=== PATIENT | female | born 1950 | race Caucasian/White ===

== ENCOUNTER → 2016-09-15 | Outpatient (CLI) | payer MEDICARE | END | disposition home or self-care (01) | LOC: LAB 09-14 09:04 | PROVIDERS: ATTEND Nurse Practitioner Family | DX: I10 Essential (primary) hypertension (principal) ==

== ENCOUNTER 2019-02-23 23:43 | Emergency (ER) | payer MEDICARE, OTHER ==
[2019-02-24] MEDS ORDERED: SODIUM CHLORIDE 0.9% 1000ML 1,000 ML IVS PRN (00:15)
[2019-02-24] MEDS ORDERED: SODIUM CHLORIDE 0.9% (FLUSH) 10 ML SYG IV PRN (00:15)
--- NOTE | 2019-02-24 01:00 | RAD ---
EXAM: XR Chest, 1 View CLINICAL HISTORY: The patient is 68 years old and is Female; syncope TECHNIQUE: Frontal view of the chest. COMPARISON: Chest radiograph December 12, 2015. FINDINGS: LUNGS: Unremarkable. No consolidation. PLEURAL SPACE: Unremarkable. No pneumothorax. HEART: Unremarkable. No cardiomegaly. MEDIASTINUM: Unremarkable. BONES/JOINTS: Scoliotic curvature of the spine is present. IMPRESSION: No acute cardiopulmonary process. Electronically signed by: Layla Roman MD 02/24/2019 12:58 AM RUST
[2019-02-24] MEDS ORDERED: LIDOCAINE 1% W/ EPINEPHRINE 20 ML VIAL INJ ONE (01:42)
--- NOTE | 2019-02-24 01:43 | CT ---
EXAM: CT Abdomen and Pelvis With Intravenous Contrast CLINICAL HISTORY: The patient is 68 years old and is Female; syncope with c/o head/neck/back pain TECHNIQUE: Axial computed tomography images of the abdomen and pelvis with intravenous contrast. Sagittal and coronal reformatted images were created and reviewed. This CT exam was performed using one or more of the following dose reduction techniques: automated exposure control, adjustment of the mA and/or kV according to patient size, and/or use of iterative reconstruction technique. COMPARISON: No relevant prior studies available. FINDINGS: ARTIFACTS: The exam is suboptimal secondary to motion artifact. LUNG BASES: Unremarkable. No mass. No consolidation. ABDOMEN: LIVER: Unremarkable. No mass. GALLBLADDER AND BILE DUCTS: Surgical clips are present in the right upper quadrant, consistent with previous cholecystectomy. PANCREAS: No ductal dilation. No mass. SPLEEN: Unremarkable. ADRENALS: Unremarkable. No mass. KIDNEYS AND URETERS: An oblong 6.1 cm right parapelvic renal cyst is present. The kidneys enhance symmetrically. No obstructing renal or ureteral calculus is seen. STOMACH AND BOWEL: The stomach is decompressed. The small bowel is normal in caliber. Stool is present throughout the colon. There is no mucosal thickening or evidence of bowel obstruction. PELVIS: APPENDIX: No findings to suggest acute appendicitis. BLADDER: The bladder is well distended. REPRODUCTIVE: Unremarkable as visualized. ABDOMEN and PELVIS: INTRAPERITONEAL SPACE: Unremarkable. No free air. No significant fluid collection. BONES/JOINTS: A right hip prosthesis is present. The hardware is engaged. Multilevel degenerative change of the spine is present. There is no acute fracture of the visualized axial and appendicular skeleton. SOFT TISSUES: The soft tissues are normal. VASCULATURE: Minimal atherosclerosis of the vasculature is present. No abdominal aortic aneurysm. LYMPH NODES: Unremarkable. No enlarged lymph nodes. IMPRESSION: No evidence of solid organ injury or traumatic bony findings on this contrasted CT of the abdomen and pelvis. Electronically signed by: Layla Roman MD 02/24/2019 1:42 AM PHOTO GRAPHICS LIBRARIAN
--- NOTE | 2019-02-24 01:45 | CT ---
EXAM: CT Chest With Intravenous Contrast CLINICAL HISTORY: The patient is 68 years old and is Female; syncope with c/o chest/head/neck/back pain TECHNIQUE: Axial computed tomography images of the chest with intravenous contrast. Sagittal and coronal reformatted images were created and reviewed. This CT exam was performed using one or more of the following dose reduction techniques: automated exposure control, adjustment of the mA and/or kV according to patient size, and/or use of iterative reconstruction technique. COMPARISON: No relevant prior studies available. FINDINGS: LUNGS: The lungs are clear of focal opacity, mass, or consolidation. PLEURAL SPACE: Unremarkable. No pneumothorax. No significant effusion. HEART: No cardiomegaly. No pericardial effusion. BONES/JOINTS: Mild multilevel degenerative change of the spine is present. There is no acute fracture of the visualized axial and appendicular skeleton. SOFT TISSUES: The soft tissues are normal. VASCULATURE: Unremarkable. No thoracic aortic aneurysm. LYMPH NODES: Unremarkable. No enlarged lymph nodes. IMPRESSION: No evidence of solid organ injury or traumatic bony findings on this contrasted CT of the chest. Electronically signed by: Layla Roman MD 02/24/2019 1:44 AM POPCORN ATTENDANT
--- NOTE | 2019-02-24 01:48 | CT ---
EXAM: CT Head Without Intravenous Contrast CLINICAL HISTORY: The patient is 68 years old and is Female; syncope with c/o head/neck/back pain TECHNIQUE: Axial computed tomography images of the head/brain without intravenous contrast. Sagittal and coronal reformatted images were created and reviewed. This CT exam was performed using one or more of the following dose reduction techniques: automated exposure control, adjustment of the mA and/or kV according to patient size, and/or use of iterative reconstruction technique. COMPARISON: No relevant prior studies available. FINDINGS: BRAIN: Unremarkable. The bueno-white matter differentiation is preserved . No hemorrhage. No significant white matter disease. No edema. No extra-axial fluid collections. VENTRICLES: Unremarkable. No ventriculomegaly. BONES/JOINTS: No acute fracture. SOFT TISSUES: Unremarkable. SINUSES: Unremarkable as visualized. No acute sinusitis. MASTOID AIR CELLS: Unremarkable as visualized. No mastoid effusion. ORBITS: Unremarkable as visualized. IMPRESSION: No acute intracranial findings. Electronically signed by: Layla Roman MD 02/24/2019 1:47 AM DIRECTOR CLINICAL DATA
--- NOTE | 2019-02-24 01:48 | CT ---
EXAM: CT Cervical Spine Without Intravenous Contrast CLINICAL HISTORY: The patient is 68 years old and is Female; syncope with c/o head/neck/back pain TECHNIQUE: Axial computed tomography images of the cervical spine without intravenous contrast. Sagittal and coronal reformatted images were created and reviewed. This CT exam was performed using one or more of the following dose reduction techniques: automated exposure control, adjustment of the mA and/or kV according to patient size, and/or use of iterative reconstruction technique. COMPARISON: No relevant prior studies available. FINDINGS: VERTEBRAE: The vertebral body heights and alignment are maintained. No acute fracture. DISCS/SPINAL CANAL/NEURAL FORAMINA: Mild intervertebral disc space narrowing with osteophyte formation is present. There is no significant canal narrowing. SOFT TISSUES: The soft tissues are normal. LUNG APICES: The lung apices are clear. IMPRESSION: No fracture or malalignment of the cervical spine. Electronically signed by: Layla Roman MD 02/24/2019 1:46 AM SPECIALIST PHYSICIAN
[2019-02-24] MEDS ORDERED: NEOMYCIN-BACITRACIN-POLYMYXIN 0.9 GM UD TOP ONE (01:52)
[2019-02-24 02:03] VITALS: O2SAT 98
--- NOTE | 2019-02-24 02:07 | ED.PDOC ---
History of Present Illness - General Chief Complaint: Head Injury Stated Complaint: fall, hit back of head Time Seen by Provider: 02/24/19 00:15 Source: patient, RN notes reviewed, Vital Signs reviewed, EMS notes reviewed, family Exam Limitations: no limitations - History of Present Illness Initial Comments: Patient is a 68-year-old white female who was at home, began to feel nauseated and got up to go to the bathroom and then had a syncopal episode in the bathroom. Patient denies any chest pain or palpitations prior to the syncope. Patient became dizzy, had her vision become bueno and then passed out. Patient believes that she was only out for a few seconds. Patient complains of mild headache that is throbbing in nature. Moderate in intensity. Not improved or worsened by anything. Patient is also complaining of right mid back pain over her kidneys. This is stabbing in nature, moderate in intensity and worse with palpation or lying on it. Patient denies any blurry vision or dizziness at this time. Patient denies any chest pain, shortness of breath, nausea, vomiting or diarrhea at this time. Headache has improved markedly. Timing/Duration: 1 hour Severity: moderate Improving Factors: rest Worsening Factors: movement Associated Symptoms: headaches, nausea/vomiting, weakness Allergies/Adverse Reactions: Allergies NO KNOWN ALLERGY Allergy (Verified 12/12/15 12:53) Home Medications: Ambulatory Orders Cyclobenzaprine HCl [Flexeril] 5 mg PO Q6H #15 tab 02/24/19 Tramadol HCl [Ultram] 50 mg PO Q6H #15 tab 02/24/19 Review of Systems - Review of Systems Constitutional: States: see HPI, weakness. Denies: chills, fever, malaise EENTM: States: see HPI. Denies: blurred vision, double vision, throat pain Respiratory: States: no symptoms reported Cardiology: States: see HPI, syncope. Denies: chest pain, palpitations Gastrointestinal/Abdominal: States: see HPI, nausea. Denies: abdominal pain, diarrhea, vomiting Genitourinary: States: no symptoms reported Musculoskeletal: States: see HPI, back pain Skin: States: other - Laceration on posterior occiput. Neurological: States: see HPI, headache, weakness. Denies: paresthesia, seizure, tingling, tremors Endocrine: States: no symptoms reported Hematologic/Lymphatic: States: no symptoms reported All other Systems: Reviewed and Negative Past Medical History (General) - Patient Medical History Hx Seizures: No Hx Stroke: No Hx Dementia: No Hx Asthma: No Hx of COPD: No Hx Cardiac Disorders: No Hx Congestive Heart Failure: No Hx Pacemaker: No Hx Hypertension: Yes Hx Thyroid Disease: No Hx Diabetes: No Hx Gastroesophageal Reflux: No Hx Renal Disease: No Hx Cancer: No Hx of HIV: No Hx Hepatitis C: No Hx MRSA: No Surgical History: appendectomy, cholecystectomy, other - Vaccination History Hx Tetanus, Diphtheria Vaccination: No Hx Influenza Vaccination: No Hx Pneumococcal Vaccination: Yes Immunizations Up to Date: No - Social History Hx Tobacco Use: Yes Hx Chewing Tobacco Use: No Hx Alcohol Use: No Hx Substance Use: No Hx Substance Use Treatment: No Hx Depression: No Feels Threatened In Home Enviroment: No Feels Threatened In a Relationship: No Hx Physical Abuse: No Hx Emotional Abuse: No Hx Suspected Abuse: No - Activities of Daily Living Hospice Agency (if applicable):: None - Female History Patient is a Female of Child Bearing Age (10 -59 yrs old): No Patient : No Family Medical History - Family History Mother Living Status: Hx Family Cancer: Yes Physical Exam - Physical Exam General Appearance: Alert, Anxious, Well Developed, Well Groomed, Well Hydrated, Well Nourished Eye Exam: bilateral normal, bilateral abnormal EOM Ears, Nose, Throat: hearing grossly normal, normal ENT inspection, normal pharynx Neck: non-tender, full range of motion, supple, normal inspection Respiratory: chest non-tender, lungs clear, normal breath sounds, no respiratory distress, no accessory muscle use Cardiovascular/Chest: normal peripheral pulses, regular rate, rhythm, no edema, no gallop, no JVD, no murmur, other - Patient with tenderness to palpation of the right mid back. There is no midline tenderness to palpation. There are no step-offs or crepitus. Peripheral Pulses: radial,right: 2+ - Cap refill less than 2 seconds in her fingers, radial,left: 2+ - Cap refill less than 2 seconds in her fingers Gastrointestinal/Abdominal: normal bowel sounds, non tender, no organomegaly, no pulsatile mass Back Exam: no vertebral tenderness, CVA tenderness (R), muscle spasm Extremity: normal range of motion, non-tender, normal inspection, no pedal edema Neurologic: wood setter II-XII nml as tested, no motor/sensory deficits, alert, normal mood/affect, oriented x 3 Skin Exam: normal color, warm/dry, other - Patient with 1 and half centimeter laceration on the occiput of her head. Lymphatic: no adenopathy Progress - Progress Progress: Differential diagnosis: Acute TN, PE, vasovagal syncope, dehydration among others. 02/24/19 02:13 Patient is markedly improved since her arrival. She has had no further dizziness or associated nausea or vomiting. Her headache has resolved. She still does have back pain, but this has improved. I suspect the patient had dehydration leading to a vasovagal episode as she got up to go use the restroom. She did strike her head but there is no acute bleed or fracture. Labs do show some mild dehydration, but no UTI. Therefore, I believe the patient had dehydration and vasovagal syncope secondary to dehydration. Plan on discharge home with follow-up with PCP. I discussed this plan of care with the patient and her family and they voiced understanding and agreement. Freddy Estrada M.D. #[id number] - Results/Orders Results/Orders: 02/24/19 00:15 IV Care:Saline Lock per Protoc QSHIFT Telemetry .ONCE Sodium Chloride 0.9% (Flush) [Saline Flush Syringe] 10 ml IV PRN PRN Sodium Chloride 0.9% 1000ML [Ns 1000 ml] 1,000 ml IVS .QD EKG Stat 02/24/19 00:16 EKG Assessment ONCE Pulse Oximetry Assessment DAILY 02/24/19 00:17 Hold Metformin x 48Hrs [id number] 02/24/19 02:01 URINALYSIS Stat 02/24/19 09:00 Pulse Ox Daily Laboratory Results - last 24 hr 02/24/19 02/24/19 00:37 00:37 WBC 13.3 H RBC 5.21 Hgb 14.3 Hct 43.7 MCV 84.0 MCH 27.4 MCHC 32.7 L RDW 15.4 H Plt Count 257 MPV 8.1 Absolute Neuts (auto) 9.90 H Absolute Lymphs (auto) 2.20 Absolute Monos (auto) 1.00 H Absolute Eos (auto) 0.20 Absolute Basos (auto) 0.10 Neutrophils % 74.6 Lymphocytes % 16.2 L Monocytes % 7.3 Eosinophils % 1.2 Basophils % 0.7 Sodium 131 L Potassium 3.5 L Chloride 90 L Carbon Dioxide 26 Anion Gap 18.5 H BUN 23 H Creatinine 0.94 BUN/Creatinine Ratio 24.5 H Random Glucose 108 H Serum Osmolality 266.9 L Calcium 9.1 Total Bilirubin 0.7 AST 19 ALT 12 Alkaline Phosphatase 59 Creatine Kinase 28 CK-MB (CK-2) 1.2 CK-MB (CK-2) % Not Reportable Troponin I < 0.02 Serum Total Protein 6.7 Albumin 3.9 Globulin 2.8 Albumin/Globulin Ratio 1.4 CT head: No acute disease. CT C-spine: No acute fractures or disease. CT chest with contrast: No acute fractures or disease. CT abdomen/pelvis with contrast: No acute disease. Chest x-ray: No acute disease. EKG performed on 23 February 2019 at 2357 hrs.: Normal sinus rhythm at 76 bpm, normal axis deviation, cannot rule out anterior infarct, age indeterminate, abnormal EKG. No previous EKG for comparison. - EKG/XRAY/CT CT Ordered: Yes CT Interpretation Call Back: Yes Procedures - Laceration/Wound Repair Lower Head Wound Length (cm): 1.5 Wound's Depth, Shape: into muscle, linear Wound Explored: clean Irrigated w/ Saline (cc's): 100 Betadine Prep?: No Anesthesia: Lidocaine w/ Epi Volume Anesthetic (cc's): 4 Wound Debrided: No wound debridement Wound Repaired With: [email or web address] Number of Sutures: 4 Layer Closure?: No Sterile Dressing Applied?: Yes Splint Applied?: No Sling Applied?: No Departure - Departure Clinical Impression: Dehydration, Vasovagal syncope Laceration of head Qualifiers: Encounter type: initial encounter Location of open wound of head: scalp Foreign body presence: without foreign body Qualified Code(s): S01.01XA - Laceration without foreign body of scalp, initial encounter Time of Disposition: 02:19 Disposition: Discharge to Home or Self Care Condition: Good Departure Forms: ED Discharge - Pt. Copy, Patient Portal Self Enrollment Instructions: DI for Closed Head Injury, DI for Concussion, Dehydration, Adult (DC), Vasovagal Response (DC) Activity: increase activity as tolerated, walking as tolerated Referrals: [facility] [Primary Care Provider] - 1-2 Days Prescriptions: Cyclobenzaprine HCl [Flexeril] 5 mg PO Q6H #15 tab Tramadol HCl [Ultram] 50 mg PO Q6H #15 tab Home Medications: Ambulatory Orders Cyclobenzaprine HCl [Flexeril] 5 mg PO Q6H #15 tab 02/24/19 Tramadol HCl [Ultram] 50 mg PO Q6H #15 tab 02/24/19
[2019-02-24 02:10] VITALS: TEMP 97.4
[2019-02-24] MEDS ORDERED: TETANUS,DIPHTHERIA,PERTUSSIS 1 EA SYG IM ONE (02:30)
[2019-02-24 02:45] VITALS: BP 100/68
== END 2019-02-24 02:46 | disposition home or self-care (01) ==
LOC: ER 23:43
DX: S01.01XA Laceration without foreign body of scalp, initial encounter (principal); R55 Syncope and collapse; E86.0 Dehydration; M54.6 Pain in thoracic spine; R11.0 Nausea; I10 Essential (primary) hypertension; Z87.891 Personal history of nicotine dependence; W18.30XA Fall on same level, unspecified, initial encounter; Z79.899 Other long term (current) drug therapy; Y92.002 Bathroom of unspecified non-institutional (private) residence as the place of occurrence of the external cause
CPT/HCPCS: 36415; 70450; 71045; 71260; 72125; 74177; 80053; 81001; 82550; 82553; 84484; 85025; 90471; 90715; 93005; J7030

== ENCOUNTER 2020-01-16 07:58 | Emergency (ER) | payer MEDICARE, OTHER ==
[2020-01-16] MEDS ORDERED: ASPIRIN TABLET 325 MG TAB ONE (08:07)
[2020-01-16] MEDS ORDERED: SODIUM CHLORIDE 0.9% (FLUSH) 10 ML SYG IV PRN (08:14)
--- NOTE | 2020-01-16 08:17 | ED.PDOC ---
History of Present Illness - General Chief Complaint: Chest Pain/AL Stated Complaint: chest pain Time Seen by Provider: 01/16/20 08:03 Source: patient, RN notes reviewed, Vital Signs reviewed Exam Limitations: no limitations - History of Present Illness Initial Comments: 69 yo F with PMH HTN and Tobacco use comes in with 2 hours of chest pain. Started substernal radiates to back. Burning in nature. No prior CAD. no family hx of CAD. Has not had previous episodes. states she woke up coughing. no shortness of breath, n/v/d. no fever. thinks she had covid one year ago, and really has not felt well since. no body aches or change in taste or smell. Does have hx of DVT with prior hip surgery 9 years ago, not currently on blood pressure medications. States she had bad LOYD when she woke up but never any diaphoresis. no current arm pain or pain radiation to jaw. Did have arm soreness while she was making coffee this morning. Allergies/Adverse Reactions: Allergies NO KNOWN ALLERGY Allergy (Verified 12/12/15 12:53) Home Medications: Ambulatory Orders Cyclobenzaprine HCl [Flexeril] 5 mg PO Q6H #15 tab 02/24/19 Tramadol HCl [Ultram] 50 mg PO Q6H #15 tab 02/24/19 Review of Systems - Review of Systems Constitutional: Denies: chills, fever EENTM: Denies: blurred vision, ear discharge, throat pain, mouth pain Respiratory: States: cough. Denies: short of breath, wheezing Cardiology: States: chest pain. Denies: palpitations, syncope Gastrointestinal/Abdominal: Denies: abdominal pain, diarrhea, nausea, vomiting Genitourinary: Denies: discharge, dysuria, frequency Musculoskeletal: States: back pain. Denies: joint swelling Skin: Denies: lumps Neurological: Denies: depressed, numbness, paresthesia, seizure Endocrine: Denies: unexplained weight gain, unexplained weight loss Hematologic/Lymphatic: States: blood clots - DVT 10 years ago after hip surgery. Denies: easy bleeding, easy bruising Past Medical History (General) - Patient Medical History Hx Seizures: No Hx Stroke: No Hx Dementia: No Hx Asthma: No Hx of COPD: No Hx Cardiac Disorders: No Hx Congestive Heart Failure: No Hx Pacemaker: No Hx Hypertension: Yes Hx Thyroid Disease: No Hx Diabetes: No Hx Gastroesophageal Reflux: No Hx Renal Disease: No Hx Cancer: No Hx of HIV: No Hx Hepatitis C: No Hx MRSA: No - Vaccination History Hx Tetanus, Diphtheria Vaccination: No Hx Influenza Vaccination: No Hx Pneumococcal Vaccination: Yes - Social History Hx Tobacco Use: Yes Hx Chewing Tobacco Use: No Hx Alcohol Use: No Hx Substance Use: No Hx Substance Use Treatment: No Hx Depression: No Hx Physical Abuse: No Hx Emotional Abuse: No Hx Suspected Abuse: No - Female History Patient : No Family Medical History - Family History Mother Living Status: Hx Family Cancer: Yes Physical Exam - Physical Exam General Appearance: Alert, Comfortable, No apparent distress, Well Developed, Well Groomed, Well Hydrated, Well Nourished Eyes, Ears, Nose, Throat Exam: PERRL/EOMI, normal ENT inspection, TMs normal Neck: non-tender, full range of motion, supple, normal inspection Respiratory: chest non-tender, lungs clear, normal breath sounds, no respiratory distress, no accessory muscle use Cardiovascular/Chest: normal peripheral pulses, regular rate, rhythm, no edema, no gallop, no JVD, no murmur Peripheral Pulses: radial,right: 2+, radial,left: 2+ Gastrointestinal/Abdominal: normal bowel sounds, non tender, soft Rectal Exam: deferred Extremity: normal inspection, no pedal edema, no calf tenderness, normal capillary refill 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 Recommend transfer for further evaluation, as we currently have no beds available. Patient refused transfer at this time. Will obs, repeat troponin. second troponin elevated, agrees to transfer. 01/16/20 08:14 Sodium Chloride 0.9% (Flush) [Saline Flush Syringe] 10 ml IV PRN PRN EKG Stat Pulse Ox Stat 01/16/20 08:15 EKG Assessment ONCE EKG STAT Pulse Oximetry Assessment DAILY 01/16/20 09:38 CTA Chest [CT] Stat Sodium Chloride 0.9% 1000ML [Ns 1000 ml] 1,000 ml IVS ONCE 01/16/20 10:40 TROPONIN-I Stat Laboratory Results WBC 5.8 K/mm3 (4.8-10.8) 01/16/20 08:35 RBC 4.62 M/mm3 (4.20-5.40) 01/16/20 08:35 Hgb 13.4 gm/dL (12.0-16.0) 01/16/20 08:35 Hct 39.4 % (36.0-47.0) 01/16/20 08:35 MCV 85.2 fl (81.0-99.0) 01/16/20 08:35 MCH 29.0 pg (27.0-31.0) 01/16/20 08:35 MCHC 34.1 g/dL (33.0-37.0) 01/16/20 08:35 RDW 15.2 % (11.5-14.5) H 01/16/20 08:35 Plt Count 210 K/mm3 (130-400) 01/16/20 08:35 MPV 8.8 fl (7.40-10.4) 01/16/20 08:35 Absolute Neuts (auto) 3.20 K/uL (1.8-6.8) 01/16/20 08:35 Absolute Lymphs (auto) 1.70 K/uL (1.0-3.4) 01/16/20 08:35 Absolute Monos (auto) 0.50 K/uL (0.2-0.8) 01/16/20 08:35 Absolute Eos (auto) 0.30 K/uL (0.0-0.4) 01/16/20 08:35 Absolute Basos (auto) 0.10 K/uL (0.0-0.1) 01/16/20 08:35 Neutrophils % 56.1 % (42.0-78.0) 01/16/20 08:35 Lymphocytes % 30.0 % (20.0-50.0) 01/16/20 08:35 Monocytes % 8.4 % (2.0-9.0) 01/16/20 08:35 Eosinophils % 4.3 % (1.0-5.0) 01/16/20 08:35 Basophils % 1.2 % (0.0-2.0) 01/16/20 08:35 PT 9.9 SECONDS (9.0-10.9) 01/16/20 08:35 INR 1.00 (0.9-1.15) 01/16/20 08:35 PTT (SP) 24.1 SECONDS (21.8-31.6) 01/16/20 08:35 D-Dimer, Quantitative 689.0 ng/ml (131-400) H* 01/16/20 08:45 Sodium 142 mmol/L (135-145) 01/16/20 08:35 Potassium 3.9 mmol/L (3.6-5.0) 01/16/20 08:35 Chloride 104 mmol/L (101-111) 01/16/20 08:35 Carbon Dioxide 26 mmol/L (21-31) 01/16/20 08:35 Anion Gap 15.9 (12-18) 01/16/20 08:35 BUN 12 mg/dL (7-18) 01/16/20 08:35 Creatinine 0.84 mg/dL (0.6-1.3) 01/16/20 08:35 BUN/Creatinine Ratio 14.3 (10-20) 01/16/20 08:35 Random Glucose 104 mg/dL (70-105) 01/16/20 08:35 Serum Osmolality 283.2 mOsm/L (275-295) 01/16/20 08:35 Calcium 9.1 mg/dL (8.4-10.2) 01/16/20 08:35 Magnesium 2.2 mg/dL (1.8-2.5) 01/16/20 08:35 Creatine Kinase 48 IU/L (26-140) 01/16/20 08:35 CK-MB (CK-2) 1.5 ng/mL (0.0-4.4) 01/16/20 08:35 CK-MB (CK-2) % Not Reportable 01/16/20 08:35 Troponin I < 0.02 ng/mL (0.01-0.05) 01/16/20 08:35 B-Natriuretic Peptide 39.9 pg/ml (0-100) 01/16/20 08:35 01/16/20 09:48 01/16/20 10:19 01/16/20 11:19 - Results/Orders Results/Orders: delay in dispo, finding placement. 01/16/20 08:14 Sodium Chloride 0.9% (Flush) [Saline Flush Syringe] 10 ml IV PRN PRN EKG Stat Pulse Ox Stat 01/16/20 08:15 EKG STAT 01/16/20 11:30 Heparin Premix [Heparin/D5w 25,000U/500ML] 25,000 units Premix Bag 1 bag IVS PRN EKG STAT Laboratory Results WBC 5.8 K/mm3 (4.8-10.8) 01/16/20 08:35 RBC 4.62 M/mm3 (4.20-5.40) 01/16/20 08:35 Hgb 13.4 gm/dL (12.0-16.0) 01/16/20 08:35 Hct 39.4 % (36.0-47.0) 01/16/20 08:35 MCV 85.2 fl (81.0-99.0) 01/16/20 08:35 MCH 29.0 pg (27.0-31.0) 01/16/20 08:35 MCHC 34.1 g/dL (33.0-37.0) 01/16/20 08:35 RDW 15.2 % (11.5-14.5) H 01/16/20 08:35 Plt Count 210 K/mm3 (130-400) 01/16/20 08:35 MPV 8.8 fl (7.40-10.4) 01/16/20 08:35 Absolute Neuts (auto) 3.20 K/uL (1.8-6.8) 01/16/20 08:35 Absolute Lymphs (auto) 1.70 K/uL (1.0-3.4) 01/16/20 08:35 Absolute Monos (auto) 0.50 K/uL (0.2-0.8) 01/16/20 08:35 Absolute Eos (auto) 0.30 K/uL (0.0-0.4) 01/16/20 08:35 Absolute Basos (auto) 0.10 K/uL (0.0-0.1) 01/16/20 08:35 Neutrophils % 56.1 % (42.0-78.0) 01/16/20 08:35 Lymphocytes % 30.0 % (20.0-50.0) 01/16/20 08:35 Monocytes % 8.4 % (2.0-9.0) 01/16/20 08:35 Eosinophils % 4.3 % (1.0-5.0) 01/16/20 08:35 Basophils % 1.2 % (0.0-2.0) 01/16/20 08:35 PT 9.9 SECONDS (9.0-10.9) 01/16/20 08:35 INR 1.00 (0.9-1.15) 01/16/20 08:35 PTT (SP) 24.1 SECONDS (21.8-31.6) 01/16/20 08:35 D-Dimer, Quantitative 689.0 ng/ml (131-400) H* 01/16/20 08:45 Sodium 142 mmol/L (135-145) 01/16/20 08:35 Potassium 3.9 mmol/L (3.6-5.0) 01/16/20 08:35 Chloride 104 mmol/L (101-111) 01/16/20 08:35 Carbon Dioxide 26 mmol/L (21-31) 01/16/20 08:35 Anion Gap 15.9 (12-18) 01/16/20 08:35 BUN 12 mg/dL (7-18) 01/16/20 08:35 Creatinine 0.84 mg/dL (0.6-1.3) 01/16/20 08:35 BUN/Creatinine Ratio 14.3 (10-20) 01/16/20 08:35 Random Glucose 104 mg/dL (70-105) 01/16/20 08:35 Serum Osmolality 283.2 mOsm/L (275-295) 01/16/20 08:35 Calcium 9.1 mg/dL (8.4-10.2) 01/16/20 08:35 Magnesium 2.2 mg/dL (1.8-2.5) 01/16/20 08:35 Creatine Kinase 48 IU/L (26-140) 01/16/20 08:35 CK-MB (CK-2) 1.5 ng/mL (0.0-4.4) 01/16/20 08:35 CK-MB (CK-2) % Not Reportable 01/16/20 08:35 Troponin I 0.09 ng/mL (0.01-0.05) H* 01/16/20 10:45 B-Natriuretic Peptide 39.9 pg/ml (0-100) 01/16/20 08:35 The data reviewed when caring for this patient included: nurse notes, prior records, etc. The history and assessments from nurses notes were reviewed and considered, and the patient's home medication list was also reviewed and considered. My assessment and the results of testing completed here in the ED were discussed with the patient/family. All questions were answered, and they express understanding of my assessment and the plan. patient was transferred to [facility] in stable condition. Vika Byrnes DO #801 - EKG/XRAY/CT EKG: Sinus, Unchanged from 02/2019 Comments: NSR, normal intervals, poor r wave progession, seen on prior ekg XRAY: chest - no acute cardiopulmonary pathology. CT: CTA chest, no PE Departure - Departure Clinical Impression: NSTEMI (non-ST elevated myocardial infarction) Chest pain Qualifiers: Chest pain type: unspecified Qualified Code(s): R07.9 - Chest pain, unspecified Time of Disposition: 13:41 Disposition: Transfer to Hospital Condition: Fair Departure Forms: ED Discharge - Pt. Copy, Patient Portal Self Enrollment Instructions: DI for Chest Pain, Quitting Smoking for Older Adults, Chest Pain (DC), Quitting Smoking Referrals: VERNON MAST IV, MACHINE REBUILDER [Primary Care Provider] - 1-2 Days Home Medications: Ambulatory Orders Cyclobenzaprine HCl [Flexeril] 5 mg PO Q6H #15 tab 02/24/19 Tramadol HCl [Ultram] 50 mg PO Q6H #15 tab 02/24/19 Transfer to Outside Facility - Transfer Information Decision to Transfer Date: 01/16/20 Decision to Transfer Time: 10:50 Reason for Transfer: specialized care not available - [facility]
[2020-01-16] MEDS ORDERED: NITROGLYCERIN 0.4 MG 25 EA TAB SL ONE ×4 (08:29→09:08)
--- NOTE | 2020-01-16 08:32 | RAD ---
EXAM: Chest,1 View CLINICAL INDICATION: Chest pain COMPARISON: 02/24/2019 FINDINGS: A single view of the chest was obtained. The heart size is normal. The pulmonary vascularity is unremarkable. The lungs are clear. There is no consolidation, infiltrate, pleural effusion, or pneumothorax. IMPRESSION: No evidence of active pulmonary disease. Electronically signed by: José Carcamo MD 01/16/2020 8:31 AM PARALEGAL
[2020-01-16] MEDS ORDERED: ALUM & MAG HYDROX-SIMETHICONE 30 ML, LIDOCAINE VISCOUS 2% 15 ML PO ONE ×2 (08:50)
[2020-01-16] MEDS ORDERED: SODIUM CHLORIDE 0.9% 1000ML 1,000 ML IVS ONE (09:38)
--- NOTE | 2020-01-16 10:18 | CT ---
EXAM: CTA chest with contrast CLINICAL INDICATION: Chest pain, shortness of breath COMPARISON: 02/24/2019. TECHNIQUE: CTA of the chest was performed using contiguous axial 2.5mm postcontrast sections through the chest including IV contrast with 3-D reconstructions. This exam was performed according to our departmental dose-optimization program, which includes automated exposure control, adjustment of the mA and/or kV according to patient size and/or use of iterative reconstruction technique. FINDINGS: There is no evidence of pulmonary embolism. There are no findings to suggest aortic dissection. There are no enlarged mediastinal or hilar lymph nodes. The visualized portions of the upper abdominal structures are unremarkable. There is a stable subpleural nodule along the lateral right lower lobe measuring 5.9 x 3.1 mm. The lungs otherwise are clear with no consolidation, infiltrate, pleural effusion, or pneumothorax. IMPRESSION: No evidence of pulmonary embolism or other acute process in the chest. Electronically signed by: José Carcamo MD 01/16/2020 10:16 AM JOY OPERATOR
[2020-01-16] MEDS ORDERED: HEPARIN PREMIX 25,000 UNITS in PREMIX BAG 1 BAG IVS SCH (11:30)
[2020-01-16] MEDS ORDERED: HEPARIN SODIUM (PORCINE) 5,000 U/ML VIAL ONE (11:53)
[2020-01-16] MEDS ORDERED: HEPARIN SODIUM (PORCINE) 5,000 U/ML VIAL IV ONE (11:59)
[2020-01-16 13:00] VITALS: TEMP 97.7
[2020-01-16 13:54] VITALS: BP 141/68; O2SAT 98
== END 2020-01-16 13:40 | disposition short-term general hospital (02) ==
LOC: ER 07:58
DX: I21.4 Non-ST elevation (NSTEMI) myocardial infarction (principal); R05 Cough; I10 Essential (primary) hypertension; Z20.828 Contact with and (suspected) exposure to other viral communicable diseases; Z87.891 Personal history of nicotine dependence; Z86.718 Personal history of other venous thrombosis and embolism; Z79.899 Other long term (current) drug therapy
CPT/HCPCS: 36415; 71045; 71275; 80048; 82550; 82553; 83880; 84484; 85025; 85379; 85610; 85730; 87635; 93005; A4216; J1644; J7030